=== PATIENT | male | born 1965 | race Caucasian/White ===

== ENCOUNTER 2024-12-29 14:29 | Outpatient (CLI) | payer MEDICARE, SELFPAY ==
--- NOTE | ~2024-12-29 | XR_ITS ---
EXAMINATION: XR hip BI wo pelvis DATE: 12/29/2024 14:56 INDICATION: Other chronic pain. Bilateral hip pain. TECHNIQUE: 2 views of right hip and 2 views of left hip were obtained. COMPARISON: None. FINDINGS: Alignment is normal. No fracture. There is mild osteoarthritis of the hips. IMPRESSION: 1. Mild osteoarthritis of the hips. Reviewed, dictated and finalized at location A. [employer]
--- NOTE | ~2024-12-29 | XR_ITS ---
HISTORY: Other chronic pain COMPARISON: None. TECHNIQUE: 2 view lumbar spine. FINDINGS: There are 5 non-rib bearing lumbar vertebral bodies. Grade 1 anterolisthesis of L4 onto L5 is identified. Remaining vertebral bodies are normally aligned. Degenerative disease is noted with osteophyte formation, disc space narrowing, endplate changes and f acet arthropathy. There are no lytic or sclerotic lesions. Paraspinal soft tissues are normal. IMPRESSION: Degenerative disease without acute fracture. Reviewed, dictated and finalized at location A. PUSHER
== END 2024-12-29 14:30 | disposition home or self-care (01) ==
LOC: MICIMG 14:34
PROVIDERS: PCP Nurse Practitioner Family; Visit Provider Nurse Practitioner Family
DX: M16.0 Bilateral primary osteoarthritis of hip (principal); M51.369 Other intervertebral disc degeneration, lumbar region without mention of lumbar back pain or lower extremity pain; G89.29 Other chronic pain
CPT/HCPCS: 72100; 73521